=== PATIENT | female | born 1950 | race Caucasian/White ===

== ENCOUNTER 2019-11-19 11:57 | Outpatient (CLI) | payer MEDICARE, SELFPAY ==
--- NOTE | ~2019-11-19 | XR_ITS ---
EXAMINATION: XR barium swallow DATE: 11/19/2019 13:02 INDICATION: Dysphagia with solids TECHNIQUE: The patient drank thick barium, gas-producing crystals, and thin barium. Fluoroscopic spot radiographs of the hypopharynx and esophagus were obtained. A total of 1824 scopic images were recor ded. Fluoroscopy exposure time was 2.4 minutes. COMPARISON: None. FINDINGS: The pharynx is symmetric and without evidence of mass lesion or mucosal irregularity. There are small anterior osteophytes in the cervical spine which impresses upon the posterior wall of the hypopharynx. There is also a cricopharyngeal bar. The esophagus is normal without mass or stricture. There is a large calcified mediastinal lymph node along the right anterior side of the mid thoracic e sophagus which appears to exert mild extrinsic mass effect upon the esophagus which is best appreciat ed on the images during the swallow on the TORRES prone position. There is moderate esophageal dysmotili ty with poor progression of weakened primary peristaltic wave and ineffectual secondary peristaltic w ave resulting in some pooling of contrast in the mid esophagus. There is no hiatal hernia. There was no gastroesophageal reflux with provocative maneuvers. IMPRESSION: 1. Several potential explanations for reported dysphagia with solids including a cricopharyngeal bar at the posterior pharyngeal esophageal segment, extrinsic compression of the midesophagus resulting f rom a large calcified mediastinal lymph node likely related to old granulomatous disease and finally diffuse mild to moderate esophageal dysmotility with poor progression of weakened primary and seconda ry peristaltic waves which may be related to presbyesophagus. Reviewed, dictated and finalized at location A. IMPRESSION: 1. Several potential explanations for reported dysphagia with solids including a cricopharyngeal bar at the posterior pharyngeal esophageal segment, extrinsic compression of the midesophagus resulting from a large calcified mediastinal l ymph node likely related to old granulomatous disease and finally diffuse mild to moderate esophageal dysmotility with poor progression of weakened primary an d secondary peristaltic waves which may be related to presbyesophagus.
== END 2019-11-19 11:58 | disposition home or self-care (01) ==
LOC: CHSIMG 12:03
PROVIDERS: PCP Internal Medicine; Visit Provider Internal Medicine
DX: R13.10 Dysphagia, unspecified (principal)
CPT/HCPCS: 74220

== ENCOUNTER 2019-11-24 08:37 | Outpatient (CLI) | payer MEDICARE, SELFPAY ==
--- NOTE | ~2019-11-24 | CT_ITS ---
EXAMINATION: CT chest w con DATE: 11/24/2019 09:37 INDICATION: Dyskinesia of the esophagus TECHNIQUE: Transaxial computed tomographic images of the chest were obtained after the administration of 75 cc of Omnipaque 350 intravenous contrast. The dose-length product (DLP) was 184.53 mGy-cm. Ite rative reconstruction was used. COMPARISON: 11/19/2019 FINDINGS: The lungs are free of acute opacities. There is no pleural effusion or pneumothorax. Calcif ied pulmonary nodules and calcified mediastinal lymph nodes are consistent with old granulomatous dis ease. There is bulky calcified subcarinal lymphadenopathy. No esophageal mass is identified. The hear t size is normal. There are no pathologically enlarged thoracic lymph nodes. There is moderate thorac ic spondylosis. IMPRESSION: 1. No definite etiology for esophageal dyskinesia. Reviewed, dictated and finalized at location A.
[2019-11-24 09:09] LABS: Estimated Glomerular Filt Rate > 60
== END 2019-11-24 08:38 | disposition home or self-care (01) ==
LOC: CHSIMG 08:39
PROVIDERS: PCP Internal Medicine; Visit Provider Internal Medicine
DX: R59.0 Localized enlarged lymph nodes (principal)
CPT/HCPCS: 71260; Q9965

== ENCOUNTER 2020-03-24 03:18 | Outpatient (CLI) | payer MEDICARE, SELFPAY ==
[2020-03-24 19:05] LABS: SARS-CoV-2 RNA PCR Negative
== END 2020-03-24 03:19 | disposition home or self-care (01) ==
LOC: ANHCOVIDDT 03:20
PROVIDERS: PCP Internal Medicine; Visit Provider Internal Medicine Gastroenterology
DX: Z01.812 Encounter for preprocedural laboratory examination (principal); Z20.828 Contact with and (suspected) exposure to other viral communicable diseases
CPT/HCPCS: 87635; C9803; U0003

== ENCOUNTER 2020-03-26 02:07 | Day surgery (SDC) | payer MEDICARE, SELFPAY ==
[2020-03-22 09:56] VITALS: BMI 25.9
[2020-03-26 11:17] VITALS: BP 165/75; PULSE 71; RESP 18; TEMP 36.3; O2SAT 96; BMI 25.3
[2020-03-26] MEDS: LACTATED RINGERS 1,000 ML 150 ML IV CONT (11:30)
--- NOTE | 2020-03-26 11:34 | WPDANESEPPF ---
Anes - Initial Pre Proc Eval Procedure: Operation Date: 03/26/20 12:30 Proposed Procedures p Esophagogastroduodenoscopy&Screen Colon - Prem Smith MD Date/Time: 03/26/20 11:34 Surgeon: Prem Smith MD Pre Op Diagnosis: Dysphagia, Neoplasm Screening Patient Data Age: 69 Gender: F Height: 1.57 m Weight: 62.8 kg Last Vital Signs Temp 36.3 C L 03/26/20 11:17 Pulse 71 03/26/20 11:17 Resp 18 03/26/20 11:17 BP 165/75 H 03/26/20 11:17 Pulse Ox 96 03/26/20 11:17 Allergies Allergy/AdvReac Type Severity Reaction Status Date / Time No Known Allergies Allergy Verified 03/26/20 11:15 Home Medications Medication Instructions Recorded Confirmed Type atenolol 25 mg tablet 25 mg PO DAILY 01/20/20 03/22/20 History atorvastatin 40 mg tablet 40 mg PO DAILY 01/20/20 03/22/20 History nifedipine 30 mg tablet,extended 30 mg PO DAILY 01/20/20 03/22/20 History release 24 hr zolpidem 5 mg tablet 5 mg PO ONCE 01/20/20 03/22/20 History polyethylene glycol 3350 17 gram 238 g PO DAILY #1 packet 03/04/20 Rx oral powder packet Patient hx anesthesia problems: none Family hx anesthesia problems: none PMFSH Past Medical History Medical History (Updated 03/26/20 @ 11:35 by Sagar Zhang MD) Arthritis Chronic GERD Colon cancer screening HTN (hypertension) Hypercholesterolemia Mediastinal lymphadenopathy Presbyesophagus Social History Social History Smoking status: Never smoker Alcohol intake: current Substance use: never Living arrangements: alone Gender identity (if verbalized by the patient): Female Spiritual care concerns: No Anes - Eval Final PreProcedure Day of Procedure 03/26/20 11:34 Patient weight: overweight Heart: regular rate and rhythm Lungs: clear to auscultation and normal air movement Airway: Mallampati scale class II Neurological: alert and oriented Last oral intake: >/= 8 hours ASA classification: II Emergent: no Anesthetic plan: proceed Anesthesia type and monitoring: general GIVS Informed Consent: The patient's anesthetic plan and its attendant risks and benefits were discussed with the patient/family/POA. Questions were solicited and answers provided to the satisfaction of the patient/family/POA.
--- NOTE | 2020-03-26 12:36 | PM.HPGS ---
History of Present Illness History of Present Illness Consent: Risks, benefits, and alternatives have been discussed and questions answered. Patient agrees to proceed with procedure. Chief complaint: Dysphagia, Neoplasm Screening Narrative: Clare Hidalgo is a 69 year old female with dysphagia better with nifedipine, also needs screening colonoscopy Review of Systems Constitutional: Constitutional: Denies headache(s) and Denies weakness Eyes: Eyes: Denies blurry vision ENT: Reports Normal hearing present, Denies headache(s) and Denies neck pain Cardiovascular: Cardiovascular: Denies chest pain and Denies dyspnea Respiratory: Respiratory: Denies dyspnea Gastrointestinal: Gastrointestinal: Reports no additional gastrointestinal complaints Genitourinary: Genitourinary: Denies dysuria Musculoskeletal: Musculoskeletal: Denies neck pain Integumentary/Breasts: Skin/Breast: Denies dry skin Neurologic: Reports Normal hearing present, Denies headache(s) and Denies weakness Psychiatric: Psychiatric: Denies anxiety Endocrine: Endocrine: Denies change in body appearance Hematologic/Lymphatic: Hematologic/Lymphatic: Denies easy bleeding Allergic/Immunologic: Allergic/Immunologic: Denies urticaria PMFSH Past Medical History Medical History (Updated 03/26/20 @ 11:35 by Sagar Zhang MD) Arthritis Chronic GERD Colon cancer screening HTN (hypertension) Hypercholesterolemia Mediastinal lymphadenopathy Presbyesophagus Social History Social History Smoking status: Never smoker Alcohol intake: current Substance use: never Living arrangements: alone Gender identity (if verbalized by the patient): Female Spiritual care concerns: No Meds Home Medications and Allergies Home Medications Medication Instructions Recorded Confirmed Type atenolol 25 mg tablet 25 mg PO DAILY 01/20/20 03/22/20 History atorvastatin 40 mg tablet 40 mg PO DAILY 01/20/20 03/22/20 History nifedipine 30 mg tablet,extended 30 mg PO DAILY 01/20/20 03/22/20 History release 24 hr zolpidem 5 mg tablet 5 mg PO ONCE 01/20/20 03/22/20 History polyethylene glycol 3350 17 gram 238 g PO DAILY #1 packet 03/04/20 Rx oral powder packet Allergies Allergy/AdvReac Type Severity Reaction Status Date / Time No Known Allergies Allergy Verified 03/26/20 11:15 Vital Signs Vital Signs - 24 hr 03/26/20 11:17 Temperature 97.3 F L Pulse Rate 71 Respiratory Rate 18 Blood Pressure 165/75 H Pulse Oximetry 96 Exam Const: General: comfortable and no acute distress HENMT: General nose exam: Normal nares present Eyes: General: appearance normal, both eyes and all related structures Neck: Neck: no JVD Resp: Auscultation: clear to auscultation bilaterally Cardio: Rate: regular rate Rhythm: regular rhythm GI: Inspection: non-distended GI Palp: Yes Soft to palpation Skin: General skin exam: normal color Neuro: General: gait normal Speech: normal speech Extrem: General: normal to inspection Psych: Mental Status: mental status grossly normal Assessment and Plan Assessment and plan (1) Presbyesophagus: Code(s): K22.8 - Other specified diseases of esophagus Status: Acute Assessment and Plan: egd (2) Mediastinal lymphadenopathy: Code(s): R59.0 - Localized enlarged lymph nodes Status: Acute (3) Colon cancer screening: Code(s): Z12.11 - Encounter for screening for malignant neoplasm of colon Status: Acute Assessment and Plan: will need colonoscopy
[2020-03-26 13:10] VITALS: BP 110/57; PULSE 63; RESP 17; O2SAT 99
[2020-03-26 13:20] VITALS: BP 133/80; PULSE 63; RESP 24; O2SAT 99
[2020-03-26 13:30] VITALS: BP 159/84; PULSE 60; RESP 18; O2SAT 99
== END 2020-03-26 13:44 | disposition home or self-care (01) ==
PROVIDERS: PCP Internal Medicine; Visit Provider Internal Medicine Gastroenterology
PROC: 0DJ08ZZ Inspection of Upper Intestinal Tract, Via Natural or Artificial Opening Endoscopic (ICD-10-PCS; CPT 43235; principal; 2020-03-26 12:30)
DX: Z12.11 Encounter for screening for malignant neoplasm of colon (principal); D12.5 Benign neoplasm of sigmoid colon; K21.9 Gastro-esophageal reflux disease without esophagitis; K22.8 Other specified diseases of esophagus; I10 Essential (primary) hypertension; E78.00 Pure hypercholesterolemia, unspecified; R59.0 Localized enlarged lymph nodes
CPT/HCPCS: 45385; 43239; 88305; J2704; J7120

== ENCOUNTER 2021-02-21 11:08 | Outpatient (CLI) | payer MEDICARE, SELFPAY ==
--- NOTE | ~2021-02-21 | XR_ITS ---
[id number] 02/21/2021 11:38 Indication: Neck pain Procedure: 4 views of the cervical spine Comparison: No prior studies for comparison. Findings: Straightening of cervical lordosis. There is degenerative disc disease at C4-5, C5-6 and C6 -7. There is multilevel uncinate and facet hypertrophy. Odontoid process within normal limits. No pre vertebral soft tissue swelling. Lung apices are normal. Impression: 1: Moderate cervical spondylosis. Reviewed, dictated and finalized at location A. Impression: 1: Moderate cervical spondylosis.
== END 2021-02-21 11:09 | disposition home or self-care (01) ==
LOC: CHSIMG 11:11
PROVIDERS: PCP Internal Medicine; Visit Provider Internal Medicine
DX: M54.2 Cervicalgia (principal)
CPT/HCPCS: 72040

== ENCOUNTER 2021-02-24 13:57 | Outpatient (RCR) | payer MEDICARE, SELFPAY ==
--- NOTE | 2021-02-24 18:06 | PTOPEVAL ---
Thank you for referring Clare Hidalgo to [facility].? The patient is scheduled to be seen for therapy? ____x/week for ___ weeks. Please review, sign, date and return this plan of care BLANCA. I agree with and certify that the following plan of care is medically necessary. Referring Physician Date Admitting Provider: Attending Provider: Sander Alvarez MD Referring Provider: *PT Outpatient Evaluation Start: 02/24/21 14:04 Freq: Status: Active Protocol: Document 02/24/21 14:04 ACR (Rec: 02/24/21 15:06 ACR [id number]) Therapy Assessment Status Assessment Status Assessment Status Evaluation Outpatient Past Medical History Neurological History Hx Neurological Disorders No Significant History Cardiovascular History Hx Hypercholesterolemia Yes Hx Hypertension Yes Respiratory History Hx Respiratory Disorders No Significant History Gastrointestinal History Hx Gastroesophageal Reflux Disease Yes Hx Other Gastrointestinal Disorders Yes: DYSPHAGIA Genitourinary History Hx Genitourinary Disorders No Significant History Musculoskeletal History Hx Arthritis Yes Hx Orthopedic Surgery Yes: ROTATOR CUFF Hematological History Hx Anemia Yes Endocrine History Hx Endocrine Disorders No Significant History HEENT History Hx Tonsillectomy Yes Integumentary History Hx Shingles Yes Psychosocial History Hx Psychiatric Disorders No Significant History Pain History History of Any Previous or Ongoing No Significant History Instance of Pain Anesthesia History Hx Anesthesia Reactions No Significant History Evaluation Information Problem Diagnosis neck pain Onset 08/24/20 Subjective Information Patient states that she moved Query Text:As Reported By Patient/ two times in 4 months and did Family a lot of lifting. She states she went to the chiropractor for 2 months and it did not help. The patient states the pain is the worst in the evening after a long day. She states that with any movement her neck pops and grinds. She states the most difficult activity is reading/looking at her phone, sleeping, and reaching overhead. She denies radicular symptoms. Patient states that her goal for therapy is to relieve the pain . Prior Lev
== END 2021-03-10 23:59 | disposition home or self-care (01) ==
LOC: CHSPT 13:57
PROVIDERS: PCP Internal Medicine; Visit Provider Internal Medicine
DX: M47.812 Spondylosis without myelopathy or radiculopathy, cervical region (principal)
CPT/HCPCS: 97014; 97110; 97140; 97161; G0283

== ENCOUNTER 2021-04-01 08:41 | Outpatient (CLI) | payer MEDICARE, SELFPAY ==
--- NOTE | ~2021-04-01 | XR_ITS ---
EXAMINATION: XR chest 2V DATE: 04/01/2021 09:02 INDICATION: Hypertension TECHNIQUE: PA and lateral views of the chest are obtained. COMPARISON: None available FINDINGS: The lungs are free of acute opacities. There is no pleural effusion or pneumothorax. The he art size is normal. Calcified mediastinal lymph nodes are consistent with old granulomatous disease. There is moderate thoracic spondylosis. Suture anchors are noted in the left humeral head. IMPRESSION: 1. No acute cardiopulmonary abnormality. Reviewed, dictated and finalized at location A.
== END 2021-04-01 08:42 | disposition home or self-care (01) ==
LOC: CHSLAB 08:43
PROVIDERS: PCP Internal Medicine; Visit Provider Internal Medicine
DX: R73.01 Impaired fasting glucose (principal); M54.2 Cervicalgia; I10 Essential (primary) hypertension
CPT/HCPCS: 71046

== ENCOUNTER 2021-06-13 10:46 | Outpatient (RCR) | payer MEDICARE, SELFPAY ==
--- NOTE | 2021-06-13 11:53 | PTOPEVAL ---
Thank you for referring Clare Hidalgo to [facility].? The patient is scheduled to be seen for therapy? ____x/week for ___ weeks. Please review, sign, date and return this plan of care BLANCA. I agree with and certify that the following plan of care is medically necessary. Referring Physician Date Admitting Provider: Attending Provider: Chin Whitley Referring Provider: CHIKIS Outpatient Evaluation Start: 06/13/21 10:49 Freq: Status: Active Protocol: Document 06/13/21 10:50 ACR (Rec: 06/13/21 11:53 ACR [id number]) Therapy Assessment Status Assessment Status Assessment Status Evaluation Outpatient Past Medical History Neurological History Hx Neurological Disorders No Significant History Cardiovascular History Hx Hypercholesterolemia Yes Hx Hypertension Yes Respiratory History Hx Respiratory Disorders No Significant History Gastrointestinal History Hx Gastroesophageal Reflux Disease Yes Hx Other Gastrointestinal Disorders Yes: DYSPHAGIA Genitourinary History Hx Genitourinary Disorders No Significant History Musculoskeletal History Hx Arthritis Yes Hx Orthopedic Surgery Yes: ROTATOR CUFF Hematological History Hx Anemia Yes Endocrine History Hx Endocrine Disorders No Significant History HEENT History Hx Tonsillectomy Yes Integumentary History Hx Shingles Yes Psychosocial History Hx Psychiatric Disorders No Significant History Pain History History of Any Previous or Ongoing No Significant History Instance of Pain Anesthesia History Hx Anesthesia Reactions No Significant History Evaluation Information Problem Diagnosis Cervical spine fusion Onset 04/25/21 Subjective Information Patient states that she got C4 Query Text:As Reported By Patient/ -C7 fused on 04/25/21. The Family patient states that she is now in more pain than before the surgery, but she has had x- rays and they look good. Patient states that she has difficulty with turning her head and getting back work. She has some difficulty with driving. 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 She states she had quite a bit of swelling after the surgery but it is fine now . Patient states that her goal for therapy is to decrease pa
--- NOTE | 2021-06-27 10:59 | PTOPEVAL ---
Thank you for referring Clare Hidalgo to [facility].? The patient is scheduled to be seen for therapy? ____x/week for ___ weeks. Please review, sign, date and return this plan of care BLANCA. I agree with and certify that the following plan of care is medically necessary. Referring Physician Date Admitting Provider: Attending Provider: Chin Whitley Referring Provider: CHIKIS Outpatient Evaluation Start: 06/13/21 10:49 Freq: Status: Active Protocol: Document 06/27/21 09:56 ACR (Rec: 06/27/21 10:58 ACR [id number]) Therapy Assessment Status Assessment Status Assessment Status Progress Outpatient Past Medical History Neurological History Hx Neurological Disorders No Significant History Cardiovascular History Hx Hypercholesterolemia Yes Hx Hypertension Yes Respiratory History Hx Respiratory Disorders No Significant History Gastrointestinal History Hx Gastroesophageal Reflux Disease Yes Hx Other Gastrointestinal Disorders Yes: DYSPHAGIA Genitourinary History Hx Genitourinary Disorders No Significant History Musculoskeletal History Hx Arthritis Yes Hx Orthopedic Surgery Yes: ROTATOR CUFF Hematological History Hx Anemia Yes Endocrine History Hx Endocrine Disorders No Significant History HEENT History Hx Tonsillectomy Yes Integumentary History Hx Shingles Yes Psychosocial History Hx Psychiatric Disorders No Significant History Pain History History of Any Previous or Ongoing No Significant History Instance of Pain Anesthesia History Hx Anesthesia Reactions No Significant History Evaluation Information Problem Diagnosis cervical fusion Onset 04/25/21 Subjective Information Patient reports frustration Query Text:As Reported By Patient/ because she thought the pain Family was going to go away after the fusion, but now the pain is constant. She states she is still up through the night due to the pain. 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 Pain Assessment Timing of Pain Assessment Timing of Pain Assessment Assessment Pain Scale Pain Scale Used Numeric (1 - 10) Self Report Pain Assessment Neck Reported Pain Level 5 Greatest Pain Intensity 6 Pain Score Pain Score 5: Self Report Interventions Used Interventions Used By Clinicians Activity or ADL's,Electrical Stimulation,Exercise,Heat
--- NOTE | 2021-07-18 15:57 | PTOPEVAL ---
Thank you for referring Clare Hidalgo to [facility].? The patient is scheduled to be seen for therapy? ____x/week for ___ weeks. Please review, sign, date and return this plan of care BLANCA. I agree with and certify that the following plan of care is medically necessary. Referring Physician Date Admitting Provider: Attending Provider: Chin Whitley Referring Provider: CHIKIS Outpatient Evaluation Start: 06/13/21 10:49 Freq: Status: Active Protocol: Document 07/18/21 14:04 ACR (Rec: 07/18/21 15:53 ACR [id number]) Therapy Assessment Status Assessment Status Assessment Status Progress Outpatient Past Medical History Neurological History Hx Neurological Disorders No Significant History Cardiovascular History Hx Hypercholesterolemia Yes Hx Hypertension Yes Respiratory History Hx Respiratory Disorders No Significant History Gastrointestinal History Hx Gastroesophageal Reflux Disease Yes Hx Other Gastrointestinal Disorders Yes: DYSPHAGIA Genitourinary History Hx Genitourinary Disorders No Significant History Musculoskeletal History Hx Arthritis Yes Hx Orthopedic Surgery Yes: ROTATOR CUFF Hematological History Hx Anemia Yes Endocrine History Hx Endocrine Disorders No Significant History HEENT History Hx Tonsillectomy Yes Integumentary History Hx Shingles Yes Psychosocial History Hx Psychiatric Disorders No Significant History Pain History History of Any Previous or Ongoing No Significant History Instance of Pain Anesthesia History Hx Anesthesia Reactions No Significant History Evaluation Information Problem Diagnosis cervical fusion Subjective Information Patient reports that she still Query Text:As Reported By Patient/ has difficulty with daily Family activities still due to the pain in her neck. She states that she feels there is something pinched in the neck because it is so painful looking side to side. She states that she would like to continue because she knows that it is helping, but not as quickly as she would like it. Pain Assessment Timing of Pain Assessment Timing of Pain Assessment Assessment Pain Scale Pain Scale Used Numeric (1 - 10) Self Report Pain Assessment Neck Reported Pain Level 5 Greatest Pain Intensity 7 Pain Score Pain Score 5: Self Report Interventions Used Interventions Used By Clinicians Activity or ADL's
--- NOTE | 2021-08-11 15:58 | PTOPEVAL ---
Thank you for referring Clare Hidalgo to [facility].? The patient is scheduled to be seen for therapy? ____x/week for ___ weeks. Please review, sign, date and return this plan of care BLANCA. I agree with and certify that the following plan of care is medically necessary. Referring Physician Date Admitting Provider: Attending Provider: Chin Whitley Referring Provider: CHIKIS Outpatient Evaluation Start: 06/13/21 10:49 Freq: Status: Active Protocol: Document 08/11/21 14:58 ACR (Rec: 08/11/21 15:52 ACR [id number]) Therapy Assessment Status Assessment Status Assessment Status Discharge Outpatient Past Medical History Neurological History Hx Neurological Disorders No Significant History Cardiovascular History Hx Hypercholesterolemia Yes Hx Hypertension Yes Respiratory History Hx Respiratory Disorders No Significant History Gastrointestinal History Hx Gastroesophageal Reflux Disease Yes Hx Other Gastrointestinal Disorders Yes: DYSPHAGIA Genitourinary History Hx Genitourinary Disorders No Significant History Musculoskeletal History Hx Arthritis Yes Hx Orthopedic Surgery Yes: ROTATOR CUFF Hematological History Hx Anemia Yes Endocrine History Hx Endocrine Disorders No Significant History HEENT History Hx Tonsillectomy Yes Integumentary History Hx Shingles Yes Psychosocial History Hx Psychiatric Disorders No Significant History Pain History History of Any Previous or Ongoing No Significant History Instance of Pain Anesthesia History Hx Anesthesia Reactions No Significant History Evaluation Information Problem Diagnosis cervical fusion Subjective Information Patient states that she is in Query Text:As Reported By Patient/ so much pain and is over it. Family Patient would like this to be her last day because the pain is so bad and she returns to the doctor soon. Pain Assessment Timing of Pain Assessment Timing of Pain Assessment Assessment Pain Scale Pain Scale Used Numeric (1 - 10) Self Report Pain Assessment Neck Reported Pain Level 5 Greatest Pain Intensity 7 Pain Score Pain Score 5: Self Report Interventions Used Interventions Used By Clinicians Electrical Stimulation, Exercise,Heat Cervical and Lumbar ROM Cervical ROM Cervical Flexion (0-60) 17 Query Text:Active in Degrees Cervical Extension (0-70) 47 Query Text:Active in Degrees Cervical Rotation Right (0-90) 60 Query Text:Active in Degrees Cervical Rotation Left (0-90)
== END 2021-08-11 10:32 | disposition home or self-care (01) ==
LOC: CHSPT 10:46
PROVIDERS: PCP Internal Medicine
DX: M54.2 Cervicalgia (principal)
CPT/HCPCS: 97014; 97110; 97140; 97161; G0283

== ENCOUNTER 2021-08-25 14:12 | Outpatient (CLI) | payer MEDICARE, SELFPAY ==
--- NOTE | ~2021-08-25 | CT_ITS ---
EXAMINATION: CT cervical spine wo [facility] EXAM DATE: 08/25/2021 14:29 INDICATION: Cervical pain. TECHNIQUE: Spiral CT of the cervical spine was performed without contrast. Axial images were reviewe d. Coronal and sagittal reformatted images cervical spine were also reviewed. The dose-length produc t (DLP) for this examination was 106.36 mGy-cm. The exposure was tailored according to patient size (auto mA exposure control), and iterative reconstruction (ASIR) was used as additional dose reduction technique. There is no prior study for comparison. FINDINGS: There is cervical fusion with anterior hardware, supporting screws, interbody devices C4-7 . There are no acute fractures identified. The odontoid process is intact. The lateral masses of C1 line up with C2. Prevertebral soft tissue and pre-dens space are within normal limits. Mild to modera te disc disease at C3-4. Level by level evaluation: C2-C3: Disc does not extend beyond the endplate margin. Uncovertebral joint arthropathy: Mild left. Facet joint arthropathy: Severe left, mild right. Neural foraminal stenosis: Moderate to severe left, mild right. Central canal stenosis: No stenosis. C3-C4: There is a mild diffuse disc bulge. Uncovertebral joint arthropathy: Mild to moderate right, mild left. Facet joint arthropathy: Mild to moderate left, mild right. Neural foraminal stenosis: Moderate right, mild left. Central canal stenosis: Mild. C4-C5: This level is fused. Uncovertebral joint arthropathy: Moderate right, mild to moderate left. Facet joint arthropathy: Moderate to severe right, mild left. Neural foraminal stenosis: Moderate right, mild to moderate left. Central canal stenosis: No stenosis. C5-C6: This level is fused. Uncovertebral joint arthropathy: Moderate to severe right, mild to moderate left. Facet joint arthropathy: Moderate bilateral. Neural foraminal stenosis: Moderate right, mild to moderate left. Central canal stenosis: No stenosis. C6-C7: This level is fused. Uncovertebral joint arthropathy: Severe right, moderate to severe left. Facet joint arthropathy: Mild bilateral. Neural foraminal stenosis: Moderate to severe right, moderate left. Central canal stenosis: No stenosis. C7-T1: Disc does not extend beyond the endplate margin. Uncovertebral joint arthropathy: None. Facet joint arthropathy: Mild bilateral. Neural foraminal stenosis: No stenosis. Central canal stenosis: No stenosis. IMPRESSION: 1. Intact fusion C4-7. 2. Advanced arthropathy, neural foraminal stenosis as detailed above. Reviewed, dictated and finalized at location G.
== END 2021-08-25 14:13 | disposition home or self-care (01) ==
LOC: CHSIMG 14:14
PROVIDERS: PCP Internal Medicine
DX: M54.12 Radiculopathy, cervical region (principal)
CPT/HCPCS: 72125

== ENCOUNTER 2021-09-26 08:20 | Outpatient (CLI) | payer MEDICARE, SELFPAY ==
--- NOTE | ~2021-09-26 | XR_ITS ---
XR chest 2V DATE: 09/26/2021 08:44 INDICATION: Hypertension. Upcoming thoracic spine surgery. TECHNIQUE: 2 views COMPARISON: 04/01/2021 2 view chest FINDINGS: Normal heart size. No hilar or mediastinal enlargement. There is old pulmonary granulomatou s disease including calcified aortopulmonary window, hilar and particularly azygous and subcarinal ly mph nodes. No pulmonary infiltrate or consolidation, pleural effusion or pulmonary vascular congestion or pneumo thorax. Status post anterior cervical spine surgical fusion since 04/01/2021. 2 suture anchors are again noted at the left humeral head. There is diffuse osteopenia. There is mild degenerative spurring of the thoracic spine. IMPRESSION: Status post anterior cervical spine surgical fusion since 04/01/2021 Old granulomatous disease No active cardiopulmonary disease Reviewed, dictated and finalized at location A. IMPRESSION: Status post anterior cervical spine surgical fusion since Old granulomatous disease No active cardiopulmonary disease
== END 2021-09-26 08:21 | disposition home or self-care (01) ==
LOC: CHSLAB 08:28 → CHSIMG 08:30
PROVIDERS: PCP Internal Medicine; Visit Provider Internal Medicine
DX: I10 Essential (primary) hypertension (principal); Z00.01 Encounter for general adult medical examination with abnormal findings
CPT/HCPCS: 71046

== ENCOUNTER 2023-01-24 12:44 | Outpatient (CLI) | payer MEDICARE, SELFPAY ==
--- NOTE | 2023-01-24 13:03 | ECG_ITS ---
Measurements Intervals [place] Rate: 73 P: 46 NE: 185 QRS: -9 QRSD: 128 T: 42 QT: 403 QTc: 446 Interpretive Statements SINUS RHYTHM RIGHT BUNDLE BRANCH BLOCK [120+ ms QRS DURATION, UPRIGHT V1, 40+ ms S IN I/aVL/V4/V5/V6] NO PREVIOUS ECG AVAILABLE FOR COMPARISON Electronically Signed On 01-24-2023 14:05:26 CDT by Patti Mchugh M.D.
--- NOTE | 2023-03-01 10:32 | P.PCNHOL_ITS ---
Holter/Event Monitor Holter/Event Monitor Date of procedure: 01/29/23 Holter/Event Procedure: Event Monitor Indications: Syncope Conclusion: 1. 28 days event monitor between 01/29/23-02/27/23. There are 38 available tr ansmissions for analysis. 2. Underlying rhythm is sinus rhythm. HR range 29-120 bpm; average 77 bpm. HR at 29 bpm was on 02/06/23 at 23:57. 3. There are occasional premature supraventricular complexes with total burden of <1%. No supraventricular tachycardia. 4. There are occasional premature ventricular complexes with total burden of <1%. No ventricular tachycardia. 5. There are 4 episodes of significant pauses. The longest pause is 9.8 seconds during a second degree AV block, type II on 02/04/23 at 08:14. Then there is a 7.1 second pause with artifact on 02/05/23 at 04:43, a 6 second pause due to second degree AV block, type II on 02/06/23 at 23:57, and a 3 second pause due to second degree AV block, type II on 02/26/23 at 02:30. 6. No symptoms available for correlation.
== END 2023-01-24 12:45 | disposition home or self-care (01) ==
LOC: CHSCARD 12:46
PROVIDERS: PCP Internal Medicine; Visit Provider Internal Medicine
DX: R55 Syncope and collapse (principal); I45.10 Unspecified right bundle-branch block; R94.31 Abnormal electrocardiogram [ECG] [EKG]
CPT/HCPCS: 93005

== ENCOUNTER 2023-01-29 12:07 | Outpatient (CLI) | payer MEDICARE, SELFPAY ==
--- NOTE | ~2023-01-29 | US_ITS ---
EXAMINATION: US carotid duplex BI DATE: 01/29/2023 12:36 INDICATION: Vertigo. Syncope. TECHNIQUE: Grayscale, color Doppler, and pulsed Doppler images of the cervical carotid arteries were obtained. The degree of vessel stenosis is placed in one of the following categories: normal, <50%, 5 0-69%, >=70% but less than near-occlusion, near-occlusion, or total occlusion. Note that percent sten osis relative to normal distal artery lumen diameter is indirectly measured from velocity measurement s as described by Prashant, et al. Radiology 2003; 229:340-346. COMPARISON: None. FINDINGS: RIGHT: The right common carotid artery (CCA) peak systolic velocity (PSV) is 111 cm/s. The right internal ca rotid artery (ICA) PSV is 75 cm/s. The right ICA end-diastolic velocity (EDV) is 18 cm/s. The right I CA/CCA PSV ratio is 0.7. Grayscale and color Doppler images yield an estimate of <50% diameter reduct ion from plaque in the ICA. The external carotid artery (ECA) PSV is 106 cm/s. There is antegrade sita w in the right vertebral artery. LEFT: The left CCA PSV is 97 cm/s. The left ICA PSV is 93 cm/s. The left ICA EDV is 26 cm/s. The left ICA/C CA PSV ratio is 1.0. Grayscale and color Doppler images yield an estimate of <50% diameter reduction from plaque in the ICA. The ECA PSV is 87 cm/s. There is antegrade flow in the left vertebral artery. IMPRESSION: 1. <50% stenosis in the right internal carotid artery. 2. <50% stenosis in the left internal carotid artery. Reviewed, dictated and finalized at location A.
== END 2023-01-29 12:08 | disposition home or self-care (01) ==
PROVIDERS: PCP Internal Medicine; Visit Provider Internal Medicine
DX: R55 Syncope and collapse (principal); I65.23 Occlusion and stenosis of bilateral carotid arteries
CPT/HCPCS: 93270; 93880

== ENCOUNTER 2023-03-06 09:16 | Outpatient (CLI) | payer MEDICARE, SELFPAY ==
--- NOTE | 2023-03-06 09:36 | ECHO_ITS ---
Patient Info Name: Clare Hidalgo Age: 72 years : 1950 Gender: Female Ht: 62 in Wt: 136 lbs BSA: 1.65 m2 HR: 93 bpm BP: 138 / 76 mmHg Heart Rhythm: Sinus Rhythm Technical Quality: Fair Exam Date: 03/06/2023 10:27 AM Exam Location: [facility]monary Patient Status: Outpatient Admit Date: 03/06/2023 Staff Ordering Physician: Sam Quiroga DO Social Services Manager: Estela Boothe RDCS Attending Provider: Sam Quiroga DO Referring Physician: Junaid MELENDEZ; Exam Type: CA echo doppler color flow Study Info Indications R55 - Syncope and collapse Complete two-dimensional, color flow and Doppler transthoracic echocardiogram is performed. Summary 1. Complete two-dimensional, color flow and Doppler transthoracic echocardiogram is performed. 2. Left ventricular chamber dimension is normal. 3. Left ventricular systolic function is normal, estimated at 65-70%. 4. The left ventricular diastolic function is grade I diastolic dysfunction. 5. E/e' 18 is elevated. 6. There is mild aortic valve sclerosis. 7. No pulmonary hypertension, estimated pulmonary arterial systolic pressure is 26 mmHg. Left Ventricle E/e' 18 is elevated. Left ventricular chamber dimension is normal. Left ventricular systolic function is normal, estimated at 65-70%. The left ventricular diastolic function is grade I diastolic dysfunction. Right Ventricle Right ventricular systolic function is normal and with normal TAPSE 1.8 cm. Right ventricular chamber dimension is normal. Left Atria Left atrial chamber dimension is normal. Right Atria Right atrial chamber dimension is normal. Aortic Valve The aortic valve is trileaflet. There is mild aortic valve sclerosis. There is no aortic valve stenosis. There is no aortic valve regurgitation. Pulmonic Valve There is no pulmonic regurgitation. Mitral Valve There is no mitral valve stenosis. There is no mitral valve regurgitation. Tricuspid Valve There is no tricuspid valve regurgitation. No pulmonary hypertension, estimated pulmonary arterial systolic pressure is 26 mmHg. Pericardium/Pleural There is no pericardial effusion. Inferior Vena Cava Normal inferior vena cava with >50% collapse upon inspiration consistent with normal right atrial pressure, 5 mmHg. Aorta The aortic root size at the sinus of Valsalva is normal. Left Ventricular Outflow Tract Name Value Normal LVOT 2D LVOT Diameter 2.0 cm LVOT Doppler LVOT Peak Gradient 7 mmHg LVOT Mean Gradient 3 mmHg LVOT VTI 23 cm LVOT VTI/AV VTI Ratio 0.9 LVOT Stroke Volume 71 ml LVOT CO 5.9 l/min LVOT CI 3.6 l/min/m2 Pulmonic Valve Name Value Normal RVOT Doppler RVOT Peak Gradient 3 mmHg PV Doppler
== END 2023-03-06 09:17 | disposition home or self-care (01) ==
LOC: ANHCARD 09:18
PROVIDERS: PCP Internal Medicine; Visit Provider Internal Medicine Cardiovascular Disease
DX: R55 Syncope and collapse (principal)
CPT/HCPCS: 93306

== ENCOUNTER 2023-03-19 01:40 | Day surgery (SDC) | payer MEDICARE, SELFPAY ==
[2023-03-16 16:22] VITALS: BMI 24.7
[2023-03-19] VITALS (15 sets, daily range): BP systolic 121–149; BP diastolic 67–103; PULSE 86–97; RESP 13–20; TEMP 36.2–36.6; O2SAT 96–99; BMI 23.9
--- NOTE | ~2023-03-19 | XR_ITS ---
Portable chest x-ray Comparison: 09/26/2021 Clinical History: Pacemaker placement Findings: Lungs are clear, without focal consolidation or pleural effusion. No pneumothorax. Cardio mediastinal silhouette is stable, now with pacemaker in place. Cervical spine fixation hardware again noted. Impression: Status post pacemaker placement. Clear lungs. Reviewed, dictated and finalized at location . Impression: Status post pacemaker placement. Clear lungs.
--- NOTE | ~2023-03-19 | XR_ITS ---
Clinical Indication: Pacemaker placement PA and lateral views of the chest: Comparison: 03/19/2023 Findings: The lungs are clear, without evidence of focal consolidation or pleural effusion. Cardiome diastinal silhouette is within normal limits. Pacemaker remains in place, unchanged. Calcified medias tinal lymph nodes are present. Bones and soft tissues are unremarkable. Impression: Pacemaker in place. Clear lungs. Calcified mediastinal lymph nodes. Reviewed, dictated and finalized at location M. Impression: Pacemaker in place. Clear lungs. Calcified mediastinal lymph nodes.
--- NOTE | 2023-03-19 10:00 | ECG_ITS ---
Measurements Intervals [place] Rate: 94 P: 43 [place]: 152 QRS: -21 QRSD: 124 T: 36 QT: 379 QTc: 474 Interpretive Statements SINUS RHYTHM BORDERLINE LEFT AXIS DEVIATION [QRS AXIS < -20] RIGHT BUNDLE BRANCH BLOCK [120+ ms QRS DURATION, UPRIGHT V1, 40+ ms S IN I/aVL/V4/V5/V6] ABNORMAL ECG COMPARED TO ECG 01/24/2023 13:10:03 NO SIGNIFICANT CHANGES Electronically Signed On 03-19-2023 17:01:18 CDT by Elton Blankenship M.D.
[2023-03-19 10:13] LABS: Basophils Percent Auto 0.1 % (0.2-1.2); Eosinophils Absolute Auto 0.1 K/mm3 (0-0.3); Eosinophils Percent Auto 1.4 % (0-4.4); Hematocrit 43.1 % (37.0-47.0); Hemoglobin 14.3 g/dL (12.0-15.0); Immature Granulocyte Absolute 0.02 K/mm3 (0.00-0.031); Immature Granulocyte Percent A 0.3 % (0-0.5); Lymphocytes Percent Auto 35.1 % (18.3-44.2); Mean Corpuscular HGB Conc 33.2 g/dl (32-36); Mean Corpuscular Hemoglobin 29.5 pg (26-34); Mean Corpuscular Volume 88.9 fl (80-100); Mean Platelet Volume 8.7 fl (7.4-10.4); Monocytes Absolute Auto 0.5 K/mm3 (0.1-0.6); Monocytes Percent Auto 6.6 % (2.6-8.5); Neutrophils Percent Auto 56.5 % (45.5-73.1); Platelet Count Result 236 k/mm3 (150-375); Red Blood Count 4.85 M/mm3 (4.2-5.4); Red Cell Distribution Width 13.2 % (11.5-14.5); White Blood Count 7.1 K/mm3 (4.5-10.0)
[2023-03-19 10:22] LABS: Anion Gap 9 mmol/L (8-16); Blood Urea Nitrogen 12 mg/dL (7-17); Calcium 9.6 mg/dL (8.4-10.2); Carbon Dioxide 25 mmol/L (22-30); Chloride 104 mmol/L (98-107); Estimated CRCL calculation 55 ml/min; Estimated Glomerular Filt Rate > 60; Glucose 120 mg/dL (65-110); Potassium 3.5 mmol/L (3.4-5.0); Sodium 138 mmol/L (137-145)
[2023-03-19 10:29] LABS: INR 0.9; Prothrombin Time 12.9 Seconds (11.1-14.7)
--- NOTE | 2023-03-19 10:48 | WPDMODSED ---
Moderate Sedation Note-Pt Data Patient Data Diagnosis: Syncope with intermittent high-grade AV block Present Complaint: No complaints this morning other than anxiety regarding procedure Procedure to be performed/Plan: Implantation of pacemaker Allergies Allergy/AdvReac Type Severity Reaction Status Date / Time No Known Allergies Allergy Verified 03/19/23 09:48 Home Medications Medication Instructions Recorded Confirmed Type atorvastatin 40 mg tablet 40 mg PO DAILY 01/20/20 03/16/23 History nifedipine 30 mg tablet,extended 30 mg PO DAILY 01/20/20 03/16/23 History release 24 hr zolpidem 5 mg tablet 5 mg PO HS PRN Insomnia 01/20/20 03/16/23 History Adults Multivitamin 1 tab-cap PO DAILY 03/16/23 03/16/23 History fiber 1 cap PO DAILY 03/16/23 03/16/23 History Sedation/Anesthesia: No previous sedation/anesthesia problems (including family history). [facility] Past Medical History Medical History Arthritis Chronic GERD Colon cancer screening HTN (hypertension) Hypercholesterolemia Mediastinal lymphadenopathy Presbyesophagus Social History Social History Smoking status: Never smoker Alcohol intake: current Drinks per week: 3 Substance use: never Substance use type: does not use Living arrangements: alone Gender identity (if verbalized by the patient): Female Spiritual care concerns: No Mod Sed Physical Exam Physical Exam Pre Procedural Exam: Normal: Appearance, Neck, Throat, Airway, Lungs, Heart Size, Heart Rate, Heart Rhythm, Neuro Exam and Extremities Hours since solid foods: 12 Hours since liquid intake: 12 Mallampati Classification: class II Internal Medicine - PN: Obj Da Vital Signs Vital Signs: Vital Signs - 24 hr 03/19/23 10:08 Temperature 36.2 C L Pulse Rate 94 Respiratory Rate 16 Blood Pressure 148/73 H Pulse Oximetry 99 Oxygen Delivery Room Air Labs 03/19/23 09:55 03/19/23 09:55 Labs: Laboratory Results - last 24 hr 03/19/23 09:55 WBC 7.1 RBC 4.85 Hgb 14.3 Hct 43.1 MCV 88.9 MCH 29.5 MCHC 33.2 RDW 13.2 Plt Count 236 MPV 8.7 Immature Gran % (Auto) 0.3 Neut % (Auto) 56.5 Lymph % (Auto) 35.1 [place] % (Auto) 6.6 Eos % (Auto) 1.4 Baso % (Auto) 0.1 L Lymph # (Auto) 2.50 [place] # (Auto) 0.5 Eos # (Auto) 0.1 Baso # (Auto) 0.0 Abs Immat Gran (auto) 0.02 Absolute Neuts (auto) 4.0 Absolute Nucleated RBC 0.0 Nucleated RBC % 0.0 PT 12.9 INR 0.9 Sodium 138 Potassium 3.5 Chloride 104 Carbon Dioxide 25 Anion Gap 9 BUN 12 Creatinine 0.60 L Estim Creat Clear Calc 55 Estimated GFR > 60 Glucose 120 H Calcium 9.6 ASA Classification/Sedation ASA Classification/Sedation ASA Class: II Emergent: No Risks: Risks, benefits and alternatives explained and patient/family accepted plan for sedation. Patient re-evaluated immediately prior to sedation.
--- NOTE | 2023-03-19 12:38 | ECG_ITS ---
Measurements Intervals [place] Rate: 86 P: 53 NE: 185 QRS: -24 QRSD: 131 T: 35 QT: 382 QTc: 458 Interpretive Statements SINUS RHYTHM BORDERLINE LEFT AXIS DEVIATION [QRS AXIS < -20] RIGHT BUNDLE BRANCH BLOCK [120+ ms QRS DURATION, UPRIGHT V1, 40+ ms S IN I/aVL/V4/V5/V6] ABNORMAL ECG COMPARED TO ECG 03/19/2023 10:08:03 NO SIGNIFICANT CHANGES Electronically Signed On 03-19-2023 17:08:26 CDT by Elton Blankenship M.D.
--- NOTE | 2023-03-19 12:39 | WPDCARDPROC ---
Cardiac Cath Procedure Note Date of procedure:: 03/19/23 Performing physician:: Gabo Edwards MD Indication:: syncope with intermittent complete heart block Brief clinical history:: this is a 72-year-old woman who has begun to have episodes of syncope recently. Outpatient event monitor demonstrated episodes of intermittent third-degree heart block with asystolic pauses as long as 9 seconds. Procedure Procedure performed:: Implantation of permanent dual-chamber pacemaker Sedation/Medication given:: fentanyl 50 mg Versed 2 mg case start time 11:39 a.m. case end time 12:35 p.m. sedation provided by Anneliese Beck RN, trained observer Access site:: left subclavian vein Estimated blood loss:: 20 cc Procedure note:: patient was brought to the cardiac catheterization lab in the postabsorptive state where the left anterior chest wall was prepped and draped in the normal sterile fashion. Anesthesia was provided with 1% lidocaine infiltrated locally. an incision was then made inferior to the clavicle from the midclavicular line to the deltopectoral groove. Using sharp and blunt dissection the subcutaneous tissue was to the level of the prepectoral fascia. Electrocautery was used to provide cutaneous hemostasis. Using blunt dissection a pacemaker pocket was created inferior to the incision. After this the pocket was packed with antibiotic soaked 4 x 4. Attention was then turned to venous access. I used the micro puncture catheter to puncture the left subclavian vein and through this site inserted the micro Dilator. The over 3 5 guidewire was then placed into the venous circulation and the 6 Indonesian SafeSheath was introduced into the venous circulation. A separate 035 guidewire was placed into the sheath this was then removed and a single access Technique was used for vascular access. using the 2035 wires and the 2 6 Indonesian safe sheaths the pacemaker leads detailed below were placed into the venous circulation to the level of the right atrium. The stylet was removed from the ventricular lead and a 3 cc syringe was used to form a J-tip on the stylet. This was then placed back into the lead the lead was steered into the RV outflow tract. A straight stylet was placed into the lead was withdrawn and placed in the right ventricular apex. Appropriate pacing and sensing performance was demonstrated the fixation screw was deployed. The 10 volt stimulation showed no evidence of extracardiac stimulation. Following this attention was turned to placing the atrial lead. The stylet was removed and a preformed atrial J stylet was placed into the lead. This was placed into the right atrial appendage position. The fixation screw was deployed and upon withdrawal of the stylet the lead was fixed into position. Appropriate pacing and sensing performance was also demonstrated and once again a 10 volts stimulus showed no evidence of extracardiac stimulation. The leads were then secured to the base of the pocket using the 2-0 silk ties and the suture sleeves. The retained sponge was removed from the pocket the pocket was irrigated with Ancef infused saline. Following this the pacemaker generator detailed below was connected to the leads using the torque wrench and the entire assembly was placed into the newly created pocket. The it was then closed in layers using 3-0 Vicryl in an interrupted fashion for the subcutaneous tissue and 4-0 Vicryl in a running subcuticular fashion for the skin. The wound was dressed with an Aquacel dressing. Procedure was well tolerated and uncomplicated. She is taken to the holding area for post pacemaker implant recovery. Postop antibiotics chest x-ray ECG were ordered Findings:: patient received a Biotronik dual-chamber pacemaker model Edora 8 [id number]-T [id number]. serial [id number]. device is programmed in the DDD mode lower rate limit 60 upper rate limit 130. The atrial lead is a Biotronik screw-in
[2023-03-19] MEDS: HYDROcodone/acetaminophen (*CRX) 5-325 MG TABLET 1 TAB PO ×2 (14:53→22:03)
[2023-03-19] MEDS: SODIUM CHLORIDE 0.9% IV 500 ML 100 ML (14:58)
--- NOTE | 2023-03-19 15:18 | PC.NURSE ---
Phase II completed @1400. pt will be admitted into room 209 for an extended recovery over night.
--- NOTE | 2023-03-19 15:49 | PC.NURSE ---
pt transferred to IMU room 209 @1530. Incision check at bedside with IMU RN. Call light placed within reach, and family was notified of room change.
[2023-03-19] MEDS: ceFAZolin 1 GM/NS 50 ML 1 GM/50 ML BAG IVPB (18:26)
[2023-03-20] VITALS (11 sets, daily range): BP systolic 128–161; BP diastolic 65–80; PULSE 59–93; RESP 16–18; TEMP 35.6–36.6; O2SAT 96–100
[2023-03-20] MEDS: ceFAZolin 1 GM/NS 50 ML 1 GM/50 ML BAG IVPB (03:25)
[2023-03-20] MEDS: HYDROcodone/acetaminophen (*CRX) 5-325 MG TABLET 1 TAB PO ×2 (03:28→10:02)
--- NOTE | 2023-03-20 10:04 | PM.DS ---
DS: Admitting Diagnosis Discharge Date 03/20/23 Admitting Diagnosis Complete heart block DS: Discharge Diagnosis Discharge Diagnosis (1) Syncope: Code(s): R55 - Syncope and collapse Status: Acute Assessment and Plan: Secondary to CHB. Now s/p PPM placement. (2) Complete heart block: Code(s): I44.2 - Atrioventricular block, complete Status: Acute Assessment and Plan: S/p PPM placement yesterday (3) Pacemaker: Code(s): Z95.0 - Presence of cardiac pacemaker Status: Acute Assessment and Plan: s/p Biotronik PPM placement yesterday. Pacer functioning normally. CXR stable with no pneumo. Stable for discharge today. DS: Summary Hospital Course Hospital Course: 72-year-old woman who has begun to have episodes of syncope recently.? Outpatient event monitor demonstrated episodes of intermittent third-degree heart block with asystolic pauses as long as 9 seconds. she underwent successful placement of a permanent pacemaker yesterday. Time Spent with Patient Time attestation: Total time spent providing and/or coordinating discharge services: Exam Const: General: comfortable, no acute distress, alert and awake Orientation/consciousness: patient oriented x3 HENMT: Head: normal to inspection Eyes: General: appearance normal, both eyes and all related structures Pupils: Equal, round and reactive pupils present Neck: Neck: normal visual inspection, supple and no JVD Carotids: normal carotid upstroke Resp: Effort & Inspection: normal respiratory effort Auscultation: clear to auscultation bilaterally Cardio: Rate: regular rate Rhythm: regular rhythm Heart sounds: S1 normal heart sound present, S2 normal heart sound present and no murmurs Other: Upper left chest sterile dressing intact with no bleeding or hematoma surrounding dressing. GI: Auscultation: normal bowel sounds Skin: General skin exam: normal color Neuro: General: patient oriented x3 Cranial nerves: Yes Equal, round and reactive pupils present Extrem: General: normal to inspection Psych: Appearance: grossly normal Mental Status: mental status grossly normal DS: Data Data Completed and Pending Labs on day of discharge: Labs from last 24 hours 03/19/23 09:55 WBC 7.1 RBC 4.85 Hgb 14.3 Hct 43.1 MCV 88.9 MCH 29.5 MCHC 33.2 RDW 13.2 Plt Count 236 MPV 8.7 Immature Gran % (Auto) 0.3 Neut % (Auto) 56.5 Lymph % (Auto) 35.1 [place] % (Auto) 6.6 Eos % (Auto) 1.4 Baso % (Auto) 0.1 L Lymph # (Auto) 2.50 [place] # (Auto) 0.5 Eos # (Auto) 0.1 Baso # (Auto) 0.0 Abs Immat Gran (auto) 0.02 Absolute Neuts (auto) 4.0 Absolute Nucleated RBC 0.0 Nucleated RBC % 0.0 PT 12.9 INR 0.9 Sodium 138 Potassium 3.5 Chloride 104 Carbon Dioxide 25 Anion Gap 9 BUN 12 Creatinine 0.60 L Estim Creat Clear Calc 55 Estimated GFR > 60 Glucose 120 H Calcium 9.6 Discharge Plan Discharge Patient Disposition: Home, Self-Care Discharge Instructions: [facility] [address] [place] [address] DISCHARGE INSTRUCTIONS - POST PACEMAKER Activity 1. No driving until you are seen in the office for your incision check. 2. No lifting, pushing or pulling more than 5 pounds with affected arm for 1 MONTH 3. No lifting affected arm above shoulder height for 1 MONTH 4. Wear immobilizer/sling only if you are unable to remember the above activity restrictions. Recommend th
== END 2023-03-20 15:32 | disposition home or self-care (01) ==
LOC: ANHCATHLAB 09:43 → ANHIMU 14:32
PROVIDERS: PCP Internal Medicine; Visit Provider Specialist
PROC: 0JH606Z Insertion of Pacemaker, Dual Chamber into Chest Subcutaneous Tissue and Fascia, Open Approach (ICD-10-PCS; CPT 33208; principal; 2023-03-19 11:30)
DX: I44.2 Atrioventricular block, complete (principal); I10 Essential (primary) hypertension; E78.00 Pure hypercholesterolemia, unspecified; K21.9 Gastro-esophageal reflux disease without esophagitis
CPT/HCPCS: 33208; 36415; 71045; 71046; 80048; 85025; 85610; 93005; A9270; C1779; C1785; J0690; J2250; J3010; J7040

== ENCOUNTER 2024-10-21 15:55 | Outpatient (CLI) | payer MEDICARE, SELFPAY ==
--- NOTE | ~2024-10-21 | XR_ITS ---
EXAM: XR ankle RT min 3V DATE: 10/21/2024 16:11 HISTORY: R Ankle injury swelling, fall 3 weeks ago . COMPARISON: None available. FINDINGS: Normal mineralization. No fracture or dislocation. Focal mixed lytic and sclerotic area in the medial talar dome, seen best in the mortise view. Mild scattered degenerative changes. Achilles and plantar enthesopathy. No erosion or periosteal change. Diffuse ankle soft tissue swelling. IMPRESSION: Subcortical abnormality in the medial talar dome, may represent degenerative change or os teochondral lesion. Reviewed, dictated and finalized at location K. IMPRESSION: Subcortical abnormality in the medial talar dome, may represent deg enerative change or osteochondral lesion.
--- OUTSIDE RECORDS SUMMARY | 2024-10-21 16:02 | XMS_ITS | Clinical Summary ---
Author Organization [facility] Healthcare Address [address] [place] [address] Care Team Providers Care Production Administrative Assistant Name Role Phone Rogelio Quirogae Michelle DO Unavailable [phone] Sander Alvarez MD Primary Care Provider [phone] Allergies No known active allergies Medications atorvastatin (LIPITOR) 40 mg tablet Take 1 tablet (40 mg total) by mouth daily Active NIFEdipine CC 30 mg 24 hr tablet Take 1 tablet (30 mg total) by mouth every morning Active zolpidem (AMBIEN) 5 mg tablet Take 1 tablet (5 mg total) by mouth nightly Active Active Problems Problem Noted Date Diagnosed Date Cardiac pacemaker in situ 03/28/2023 Overview (03/28/2023): Biotronik Edora Dual Pacemaker. Dx; CHB, Syncope. DOI 03/19/2023-Grace. Patient follows with Dr Quiroga. Second degree AV block, Mobitz type II 3 Resolved Problems Problem Noted Date Diagnosed Date Resolved Date Complete heart block 03/07/2023 023 Social History Tobacco Use Types Packs/Day Years Used Date Smoking Tobacco: Never Personal Safety Answer Date Recorded Getting School Help Needed Not on file 08/04 Comments Unknown Sex and Gender Information Value Date Recorded Sex Assigned at Not on file Legal Sex Female 11:17 AM CDT Gender Identity Not on file Sexual Orientation Not on file Obstetrics History Last Filed Vital Signs Vital Sign Reading Time Taken Comments Blood Pressure 138/60 03/07/2023 8:09 AM CDT Pulse 93 03/07/2023 8:09 AM CDT Temperature - - Respiratory Rate - - Oxygen Saturation 97% 03/07/2023 8:09 AM CDT Inhaled Oxygen Concentration - - Weight 61.2 kg (135 lb) 03/07/2023 8:09 AM CDT Height 160 cm (5' 3 ) 03/07/2023 8:09 AM CDT Body Mass Index 23.91 03/07/2023 8:09 AM CDT Plan of Treatment Health Maintenance Due Date Last Done Comments Depression Screening 1948 Fall Risk Assessment 1948 Hepatitis C Screening 1948 Osteoporosis Screening-Bone Density Scan 1948 DTaP/Tdap/Td Vaccine (1 - Tdap) 1959 Hepatitis B Screening 1966 Pneumococcal vaccine 65+ (1 of 1 - PCV) 1998 Zoster Vaccine (1 of 2) 1998 Well Visit 65+ 2013 Influenza Vaccine (#1) 2024 Insurance MEDICARE [facility] MEDICARE SUPPLEMENT INSURANCE Care Teams Production Administrative Assistant Relationship Specialty Start Date End Date Sander Alvarez MD [address] [place], [place] [id number] PCP - General Internal Medicine 03/07/23 Sam Quiroga DO [address] [place], [place] [id number] Referring Physician Internal Medicine 03/06/23
--- OUTSIDE RECORDS SUMMARY | 2024-10-21 16:02 | XMS_ITS | Referral Summary ---
Author Organization [facility] Healthcare Address [address] [place] [address] Care Team Providers Care Plastic Frame Inserter Name Role Phone Rogelio Quirogae Michelle DO Unavailable [phone] Sander Alvarez MD Primary Care Provider [phone] Allergies No known active allergies Medications atorvastatin [...] on file Sexual Orientation Not on file Last Filed Vital Signs Vital Sign Reading [...] 03/07/2023 8:09 AM CDT Plan of Treatment Not on file Insurance MEDICARE [facility] Address: [facility] [address] [place] [address] [facility] MEDICARE SUPPLEMENT INSURANCE Care Teams Plastic Frame Inserter Relationship Specialty Start Date End Date Sander Alvarez MD [address] [place] [address] PCP - General Internal Medicine 03/07/23 Sam Quiroga DO [address] [place] [address] Referring Physician Internal Medicine 03/06/23
== END 2024-10-21 15:56 | disposition home or self-care (01) ==
LOC: CHSIMG 16:00
PROVIDERS: PCP Internal Medicine; Visit Provider Internal Medicine
DX: S99.911A Unspecified injury of right ankle, initial encounter (principal); M79.89 Other specified soft tissue disorders
CPT/HCPCS: 73610